=== PATIENT | female | born 1955 | race Caucasian/White ===

== ENCOUNTER 2018-04-22 05:53 | Day surgery (SDC) | payer MEDICARE ==
[~2018-04-22] VITALS: Ht 1788.2 cm; Wt 72.6 kg
--- NOTE | ~2018-04-22 | OP ---
PATIENT NAME: TAMARA GOMEZ MEDICAL RECORD: [id number] :57 LOCATION:DANEUDY ADMISSION DATE: SURGEON: KAYLYNN BRIAN MD DATE OF OPERATION: 04/22/2018 REFERRED BY: Tresa Maya MD PREOPERATIVE DIAGNOSIS: Chronic kidney disease, IV. POSTOPERATIVE DIAGNOSIS: Chronic kidney disease, IV. OPERATION PERFORMED: Creation of a right brachial basilic AV fistula as the first of 2 planned operations to create a translocated basilic vein fistula. SURGEON: Kaylynn Brian MD ANESTHESIA: General per GROUND PRODUCTS DIRECTOR. PREOPERATIVE NOTE: This is a nice 62-year-old white female patient from [place], [place] has chronic kidney disease stage IV and was referred to me for dialysis access creation. She has small veins on her vein mapping preop and we have planned to do an upper arm right-sided AV fistula, probably brachiobasilic. Under anesthesia and with a regional nerve block, the patient was placed in supine position, prepped and draped in sterile manner. I examined her first with a Duplex Ultrasound. I used a [place] drain as a proximal venous tourniquet and applied nitroglycerin paste. I saw on ultrasound that the cephalic vein in the arm is I thought too small to use for a fistula today. The basilic vein is quite the largest vein and I elected to go ahead with what will be a 2-stage operation. I made a transverse incision and exposed the brachial artery and the basilic vein. These vessels were mobilized. The artery was controlled with Silastic loops. The vein was distally ligated with 3-0 Vicryl and divided. The vein was treated with topical papaverine and flushed with heparinized saline and dilated hydrostatically. It was shortened and beveled. The artery was treated with topical papaverine. It was opened at the site of proposed anastomosis and flushed proximally and distally with dilute heparinized saline. An end of vein to side of artery 7-0 running anastomosis was performed and when completed, it was watertight and hemostatic. The patient had immediate thrill and bruit over the anastomosis. There was good pulsatile continuous Doppler flow in the basilic vein and good high resistance pulsatile flow in the brachial artery distal to the anastomosis and there was continuous pulsatile flow in the brachial artery proximal to the anastomosis all as planned. The wound was closed with interrupted inverted 3-0 Vicryl and running intracuticular 4-0 Monocryl and Dermabond glue. It was dressed with Maxorb Ag, Tegaderm, and Cavilon skin prep. The patient was awakened and taken to the recovery room. There was no blood loss during the procedure. All instruments and needles, sponges, etc. were accounted for at the termination of the operation. No drain was used and no specimen was submitted for histopathology. PLAN: The patient will be allowed to go home today and follow up with me in my office in approximately 2 weeks. I plan to bring her back to the operating room OPERATIVE REPORT [id number] TAMARA GOMEZ in approximately 1 month to perform the second stage of these 2 operations. She is given a prescription for tramadol 50 mg, 20 of them, she can take 1 or 2 p.o. q.4 hours p.r.n. pain. TRANSINT:[id number] Voice Confirmation ID: [id number] DOCUMENT ID: [id number] KAYLYNN BRIAN MD at 1054 CC: TRESA MAYA MD [id number] DICTATION DATE: 04/22/18 1249 BLACK TOPPER: 04/22/18 1310 [facility] 04/22/18 [facility] [address] [place] [address]
[2018-04-22 06:49] LABS: BASOPHILS 0.2 % (0-2); EOSINOPHILS 2.7 % (0-7); HEMATOCRIT 30.5 % (36.0-48.0); HEMOGLOBIN 9.7 g/dL (12-16); IMMATURE GRANULOCYTES 0.2 % (0-5); LYMPHOCYTES 27.1 % (15-50); MCH 29.4 pg (26.0-34.0); MCHC 31.8 g/dL (31.0-37.0); MCV 92.4 fL (80.0-100.0); MEAN PLATELET VOLUME 9.3 fL (7.4-10.4); MONOCYTES 5.7 % (2-11); NEUTROPHILS 64.1 % (40-80); PLATELET COUNT 264 10x3/uL (130-400); RDW 13.8 % (11.5-14.5); WBC 8.7 10x3/uL (4.8-10.8)
[2018-04-22 06:55] LABS: ANION GAP 11.4 mmol/L (8-16); CALCIUM 8.9 mg/dL (8.5-10.1); CARBON DIOXIDE 28.2 mmol/L (21.0-32.0); CREATININE - SERUM 3.8 mg/dL (0.6-1.3); POTASSIUM - SERUM 3.6 mmol/L (3.5-5.1)
[2018-04-22 07:24] LABS: INR 0.92 (0.85-1.17)
[2018-04-22] MEDS ORDERED: PAXIL40 MG PO (09:43)
[2018-04-22] MEDS ORDERED: KEPPRA500 MG PO (09:44)
[2018-04-22] MEDS ORDERED: EMBEDA ER 50-21 EACH PO (09:44)
[2018-04-22] MEDS ORDERED: PLAVIX75 MG PO (09:45)
[2018-04-22] MEDS ORDERED: FUROSEMIDE40 MG PO (09:45)
[2018-04-22] MEDS ORDERED: ATIVAN0.5 MG PO (09:45)
[2018-04-22] MEDS ORDERED: PRAVACHOL40 MG PO (09:46)
[2018-04-22] MEDS ORDERED: CARAFATE1 G PO (09:46)
[2018-04-22] MEDS ORDERED: ZYLOPRIM100 MG PO (09:47)
[2018-04-22] MEDS ORDERED: OMEPRAZOLE20 M1 PO (09:47)
[2018-04-22] MEDS ORDERED: ISOSORBIDE MON120 M1 PO (09:47)
[2018-04-22] MEDS ORDERED: DESERYL100 MG PO (09:48)
[2018-04-22] MEDS ORDERED: LOPRESSOR25 MG PO (09:48)
[2018-04-22] MEDS ORDERED: NORVASC5 MG PO (09:48)
[2018-04-22] MEDS ORDERED: ZANTAC150 MG PO (09:49)
[2018-04-22 09:58] VITALS: BP 127/65; Ht 1788.2 cm; Wt 72.6 kg
[2018-04-22] MEDS ORDERED: ULTRAM50 MG PO (12:35)
== END 2018-04-22 14:55 | disposition home or self-care (01) ==
LOC: D.OPS 05:53
PROVIDERS: Surgery
DX: N18.4 Chronic kidney disease, stage 4 (severe) (principal); Z01.812 Encounter for preprocedural laboratory examination

== ENCOUNTER 2018-05-27 07:01 | Day surgery (SDC) | payer MEDICARE ==
[~2018-05-27] VITALS: Ht 162.6 cm; Wt 72.3 kg
--- NOTE | ~2018-05-27 | OP ---
PATIENT NAME: TAMARA GOMEZ MEDICAL RECORD: [id number] :57 LOCATION:D.OPS ADMISSION DATE: SURGEON: KAYLYNN BRIAN MD DATE OF OPERATION: 05/27/2018 SURGEON: Kaylynn Brian MD ANESTHESIA: Regional nerve block, which failed and subsequent general anesthetic per CORK SLABS SAWYER with an LMA. REFERRING PHYSICIAN: Tresa Maya MD PREOPERATIVE DIAGNOSIS: CKD IV. POSTOPERATIVE DIAGNOSIS: CKD IV. PREOPERATIVE NOTE: This 62-year-old white female patient from [place], [place], has severe chronic renal disease and it is anticipated she will require dialysis within the next few months to a year. She had a right brachiobasilic Doreen type AV fistula created about 5 weeks ago within the intention of returning her to the operating room in 3-4 weeks for conversion to a translocated basilic venous outflow type fistula. She is brought back to the OR for that today. After the patient was given a regional block and sedation, she was placed in supine position, prepped and draped in a sterile manner. I examined her with ultrasound and traced the course of the basilic vein and noted it to be 10-12 mm in diameter throughout its course in the upper arm, which I believe will be very satisfactory for dialysis access. We found that the regional block did not give adequate anesthetic, and she was put to sleep with an LMA. A long incision on the medial aspect of the arm was made and the basilic vein mobilized from the arterial anastomosis to the junction with the brachial veins to form the axillary vein. The vein was mobilized fully and then occluded near the arterial anastomosis and the vein divided. The vein was flushed with heparinized saline and treated with topical papaverine and clamped. Branches and tributaries of the vein were ligated with 3-0 Vicryl and divided and a few Hemoclips were used as well as electrocautery for hemostasis. During the dissection, I noted persistent oozing and bleeding and recall that this patient has been on Coumadin. She has supposedly has been off Coumadin for 5 days preop, but obviously there is still some residual effect. I placed the vein in the subcutaneous tunnel just anterior and lateral to the original location. There was not enough length or elasticity in the vein to permit a more anterior tunnel, which I would have preferred. Care was taken not to twist it and it was flushed again with heparinized saline and an end-to-end anastomosis done to the stump of the vein, which had not been removed from the artery. This anastomosis was carried out with 2 running 7-0 Prolenes sutures, taking care not to pursestring or narrow the vein there at the anastomosis. When that was complete and the occluding clamps were released, excellent flow with a strong palpable thrill and strong pulsatile continuous Doppler flow developed immediately. The suture line was hemostatic. The wound continued to ooze and was treated with more electrocautery and dry gauze compression. Some Fibrillar hemostatic oxidized cellulose was used in the upper end of the OPERATIVE REPORT [id number] TAMARA GOMEZ incision to help with hemostasis there. The wound was closed with interrupted inverted 3-0 Vicryl and the skin was closed with running intracuticular 4-0 Monocryl. The wound was sealed and further dressed with glue and Maxorb AG with Tegaderm, and Cavilon skin prep as well. The patient was awakened and taken to the recovery room in stable condition. PLAN: I plan for the patient to go home today and have her back in my office on Wednesday of next week to change the dressing and check her wound. I will ask her not to resume Plavix until that time. Blood loss was about 50 cc and was unreplaced. No drain was used. All sponges, instruments and needles were accounted for and no surgical specimen was submitted for histopathology. TRANSINT:[id number] Voice Confirmation ID: [id number] DOCUMENT ID: [id number] KAYLYNN BRIAN MD at 1709 CC: TRESA MAYA MD [id number] DICTATION DATE: 05/27/18 1232 PACE ANALYST: 05/27/18 1244 [facility] 05/27/18 [facility] [address] [place] [id number]
[~2018-05-27 07:01] MED LIST: ATIVAN0.5 MG PO; CARAFATE1 G PO; DESERYL100 MG PO; EMBEDA ER 50-21 EACH PO; FUROSEMIDE40 MG PO; ISOSORBIDE MON120 M1 PO; KEPPRA500 MG PO; LOPRESSOR25 MG PO; NORVASC5 MG PO; OMEPRAZOLE20 M1 PO; PAXIL40 MG PO; PLAVIX75 MG PO; PRAVACHOL40 MG PO; ULTRAM50 MG PO; ZANTAC150 MG PO; ZYLOPRIM100 MG PO
[2018-05-27 07:45] LABS: BASOPHILS 0.3 % (0-2); EOSINOPHILS 1.9 % (0-7); HEMATOCRIT 31.3 % (36.0-48.0); HEMOGLOBIN 10.1 g/dL (12-16); IMMATURE GRANULOCYTES 0.2 % (0-5); LYMPHOCYTES 22.8 % (15-50); MCH 29.5 pg (26.0-34.0); MCHC 32.3 g/dL (31.0-37.0); MCV 91.5 fL (80.0-100.0); MEAN PLATELET VOLUME 9.3 fL (7.4-10.4); MONOCYTES 4.8 % (2-11); PLATELET COUNT 246 10x3/uL (130-400); RBC 3.42 10x6/uL (4.00-5.40); RDW 13.4 % (11.5-14.5); WBC 9.8 10x3/uL (4.8-10.8)
[2018-05-27 07:59] LABS: APTT 24.4 SECONDS (22.8-39.4); INR 1.06 (0.85-1.17); PROTIME 13.4 SECONDS (11.6-15.0)
[2018-05-27 08:07] LABS: ANION GAP 17.7 mmol/L (8-16); CREATININE - SERUM 4.3 mg/dL (0.6-1.3); POTASSIUM - SERUM 3.7 mmol/L (3.5-5.1)
[2018-05-27 08:32] LABS: ALBUMIN 3.7 g/dL (3.4-5.0); BILIRUBIN - TOTAL 0.18 mg/dL (0.2-1.3); PROTEIN - SERUM 7.1 g/dL (6.4-8.2)
[2018-05-27 08:34] VITALS: BP 145/60; Ht 162.6 cm; Wt 72.3 kg
[2018-05-27] MEDS ORDERED: HYDROCODON-ACE1 EAC7 PO (12:17)
== END 2018-05-27 14:51 | disposition home or self-care (01) ==
LOC: D.OPS 07:01
PROVIDERS: Internal Medicine Nephrology
DX: N18.4 Chronic kidney disease, stage 4 (severe) (principal); Z01.812 Encounter for preprocedural laboratory examination

== ENCOUNTER 2018-06-12 15:48 | Inpatient (IN) | payer MEDICARE ==
[~2018-06-12] VITALS: Ht 162.6 cm; Wt 71.8 kg
--- NOTE | ~2018-06-12 | MORECARE ---
CASE MANAGEMENT DISCHARGE SUMMARY PATIENT: TAMARA GOMEZ UNIT: [id number] ADM DATE: 06/12/18 AGE: 63 : 57 SEX: F ROOM/BED: D.9850 AUTHOR: MAHIN,DOC PHYSICIAN: REFERRING PHYSICIAN: HARPAL CRAFT MD DATE OF SERVICE: 06/21/18 Discharge Plan Patient Name: TAMARA GOMEZ Facility: [facility]:[place] : 1955 Planned Disposition: Home with Home Health Anticipated Discharge Date: 06/20/18 Discharge Date: 06/20/2018 Expected LOS: 8 Initial Reviewer: [email or web address] Initial Review Date: 06/12/2018 Generated: 06/21/18 9:09 am Comments DCP- Discharge Planning Updated by [email or web address]: Edu Steinberg on 06/20/18 1:[address] Patient Name: TAMARA GOMEZ Encounter No: [id number] : 1955 Primary Insurance: MEDICARE A & B Anticipated DC Date: 06-20-2018 Planned Disposition: Home with Home Health External Planned Provider: [facility] DCP follow-up note: CM RECEIVED CALL FROM UZIEL ISSA WHO INFORMED CM THAT THE PT HAS NOTIFIED NURSE THAT SHE IS UNHAPPY THE DOCTOR HAS STOPPED PAIN MEDICATIONS AND MAY LEAVE AMA; LUIS MANUEL IS CONTACTING DR. DE LA CRUZ TO DISCUSS SITUATION WITH HIM. 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 LUIS MANUEL PROVIDED HOME HEALTH ORDER. CM MET WITH PT IN ROOM, DISCUSSED DISCHARGE PLANNING AND NEEDS, AVAILABILITY OF REHAB SERVICES, MEDICAL EQUIPMENT AND HOME HEALTH PT DENIES NEEDS OTHER THAN HOME HEALTH FOR MEDICATION MANAGEMENT. PT REPORTS UNHAPPINESS WITH DOCTOR STOPPING HER PAIN MEDICATIONS AND STATES SHE CAN DO BETTER WITH PAIN MANAGEMENT AT HOME ARRANGED BY HER REGULAR DOCTORS. PT REPORTS HER SISTER IS ON THE WAY TO PICK HER UP FOR DISCHARGE HOME NOW. IMPORTANT MESSAGE FROM MEDICARE PROVIDED AND EXPLAINED. CM CALLED [facility], , SPOKE TO ELOISE WHO TOOK REFERRAL, PT ON SCHEDULE FOR TOMORROW FOR HOME HEALTH ADMISSION. CM FAXED REFERRAL TO [facility] AT [phone]. HAZARDOUS SUBSTANCES SCIENTIST NURSE NOTIFIED. Edu Steinberg, CASE MANAGEMENT DCP- Discharge Planning Updated by [email or web address]: Edu Steinberg on 06/15/18 4:[address] Patient Name: TAMARA GOMEZ Admission Status: ER Accout number: [id number] Admission Date: 06-12-2018 : 1955 Admission Diagnosis:INFCT FOL A PROC, SUPERFIC INCISIONAL SURGICAL SITE, IN Attending: Harpal Craft Current LOS: 3 Anticipated DC Date: 06-17-2018 Planned Disposition: Home with Home Health Primary Insurance: MEDICARE A & B PLANNED EXTERNAL PROVIDER: [facility] Discharge Planning Comments: * Is the patient Alert and Oriented? Yes 0 * How many steps to enter\exit or inside your home? 5 0 * PCP DR. CRISTOFER EVANS, [place] * Pharmacy [facility] IN [place] * Preadmission Environment Home with Family 0 * ADLs Independent 0 * Equipment Rolling Walker Walker 0 * Other Equipment NO MEDICAL EQUIPMENT PROVIDER [place]FR[place] 0 * List name and contact numbers for known caregivers / representatives who currently or will assist patient after discharge: ROBERT CUMMINS, SISTER, 0 * Verbal permission to speak to the caregivers and representatives has been obtained from the patient. Yes 0 * Community resources currently utilized None 0 * Please name any agencies selected above. NONE 0 * Additional services required to return to the preadmission environment? No 0 * Can the patient safely return to the preadmission environment? Yes 0 * Has this patient been hospitalized within the prior 30 days at any hospital? No 0 CM MET WITH PT AND SISTER IN ROOM TO DISCUSS DISCHARGE PLANNING AND NEEDS. TAMARA GOMEZ provided verbal consent to discuss current and ongoing needs with/in the presence of: SISTERROBERT. PT REPORTS LIVING AT HOME INDEPENDENTLY WITH HER ADULT SISTER AND SISTER'S FAMILY. PT HAS WALKER AND 4 WHEELED WALKER AT HOME WITH NO MEDICAL EQUIPMENT PROVIDER PREFERNECE. PT HAS NO OUTSIDE SERVICES ASSISTING IN THE HOME. CM DISCUSSED AVAILABILITY OF HOME HEALTH, REHAB SERVICES AND MEDICAL EQUIPMENT. PT WOULD LIKE HOME HEALTH FOR MEDICATION MANAGEMENT AND TEACHING, PT'S SISTER REPORTS PT IS ON SO MANY MEDICATIONS, THEY ARE HAVING TROUBLE KEEPING UP WITH THEM; CHOICE FOR [facility] SIGNED. PT REPORTS HER SISTER WILL PICK HER UP FOR DISCHARGE HOME. IMPORTANT MESSAGE FROM MEDICARE PROVIDED AND EXPLAINED. PT AND FAMILY ASKED FOR UPDATE REGARDING THE LADY THAT IS SUPPOSED TO BE PUTTING IV IN, SHE LEFT ABOUT 4 HOURS AGO TO GET AN ULTRASOUND MACHINE AND NEVER RETURNED. PT ALSO THINKS SHE MAY HAVE FILED MEDICAID APPLICATION BUT IS NOT SURE AND REPORTS HAVING MEDICARE ONLY, ASKING FOR CM ASSISTANCE TO CHECK WITH MEDICAID. CM CALLED NICO IN [employer], [phone], LEFT DETAILED MESSAGE ASKING TO CHECK TO SEE IF PT HAS FILED FOR MEDICAID AND IF NOT, TO ASSIST WITH MEDICAID APPLICATION. CM NOTIFIED BEDSIDE NURSE OF PT AND FAMILY'S CONCERN OF 4 HOUR WAIT WITH NOT UPDATE ON IV ACCESS NURSE. PT REQUESTED HOME HEALTH FOR MEDICATION TEACHING WITH MARY, PRIMARY CARE DOCTOR [facility] IN [place]. CM TO ARRANGE HOME HEALTH WITH PHYSICIAN AGREEMENT AND HOME HEALTH ORDERS. CM TO FOLLOW AND ASSIST IF NEEDED. Contact Center Engineer: Edu Steinberg DCPIA - Discharge Planning Initial Assessment Updated by MATT: Edu Steinberg on 06/15/18 4:57 pm * Is the patient Alert and Oriented? Yes * How many steps to enter\exit or inside your home? * PCP DR. CRISTOFER EVANS, [place] * Pharmacy [facility] IN [place] * Preadmission Environment Home with Family * ADLs Independent * Equipment Rolling Walker Walker * Other Equipment NO MEDICAL EQUIPMENT PROVIDER PREFRENCE * List name and contact numbers for known caregivers / representatives who currently or will assist patient after discharge: ROBERT CUMMINS, , * Verbal permission to speak to the caregivers and representatives has been obtained from the patient. Yes * Community resources currently utilized None * Please name any agencies selected above. NONE * Additional services required to return to the preadmission environment? No * Can the patient safely return to the preadmission environment? Yes * Has this patient been hospitalized within the prior 30 days at any hospital? No Coverage Notice Reviewer: [email or web address] Gus Steinberg Notice Issued Date-Time: 06/15/2018 16:50 Notice Type: Patient Choice Letter Notice Delivered To: Family Member Relationship to Patient: Sister Rn Documentation Name: ROBERT CUMMINS Delivery Method: HAND - Hand Delivered Linda Days: Prior Verbal Notification: Recipient Understood Notice: Yes Recipient Signature: Yes Med Rec Note Co-signed by Attending: Coverage Notice Comment: [facility] Reviewer: [email or web address] Gus Steinberg Notice Issued Date-Time: 06/15/2018 16:50 Notice Type: IM Discharge Notice Notice Delivered To: Family Member Relationship to Patient: Sister Rn Documentation Name: ROBERT CUMMINS Delivery Method: HAND - Hand Delivered Linda Days: Prior Verbal Notification: Recipient Understood Notice: Yes Recipient Signature: Yes Med Rec Note Co-signed by Attending: Coverage Notice Comment: Reviewer: [id number] - Edu Steinberg Notice Issued Date-Time: 06/20/2018 13:50 Notice Type: IM Discharge Notice Notice Delivered To: Patient Relationship to Patient: Rn Documentation Name: Delivery Method: HAND - Hand Delivered Linda Days: Prior Verbal Notification: Recipient Understood Notice: Yes Recipient Signature: Yes Med Rec Note Co-signed by Attending: Coverage Notice Comment: Last DP export: 06/20/18 1:47 Patient Name: TAMARA GOMEZ Page [id number] at 0809 All edits/amendments must be made on the electronic document DICTATION DATE: 06/21/18 08 CORPORATE HEALTH CONSULTANT: ROBERT 06/21/18 08 RPT#: [id number] DC DATE:06/20/18 STATUS: DIS IN [facility] [address] [place] [address] END OF REPORT
--- NOTE | ~2018-06-12 | OP ---
PATIENT NAME: TAMARA GOMEZ MEDICAL RECORD: [id number] :57 LOCATION:D.M2 D.2138 ADMISSION DATE:06/12/18 SURGEON: KAYLYNN BRIAN MD DATE OF OPERATION: 06/16/2018 REFERRING PHYSICIAN: Tresa Maya MD OPERATION PERFORMED: Insertion of a right internal jugular central venous line with ultrasound and fluoroscopic guidance. SURGEON: Kaylynn Brian MD PREOPERATIVE DIAGNOSES: Chronic kidney disease IV with a wound infection, following creation of a right brachial translocated basilic arteriovenous fistula and no venous access for antibiotic therapy. POSTOPERATIVE DIAGNOSIS: Chronic kidney disease IV with a wound infection, following creation of a right brachial translocated basilic arteriovenous fistula and no venous access for antibiotic therapy. PREOPERATIVE NOTE: This 63-year-old white female patient with chronic renal insufficiency is about 2 weeks status post second stage creation of a right brachial artery to translocated basilic vein arteriovenous fistula. The fistula, I believe, is working well with good pulsation and thrill and bruit; however, she developed a somewhat unusual wound infection, which presented about 2 weeks postop and cultures have grown a single Proteus species. She has received intravenous antibiotic therapy, but has lost all IV access at this point and Dr. Maya does not feel it is appropriate to convert to oral antibiotics just yet. She is brought to the OR to put in a central line. DESCRIPTION OF THE PROCEDURE: Under sedation and monitoring per WOOD STRIP BLOCK FLOOR INSTALLER, the patient was placed in the supine position. The neck first examined with ultrasound and noted a normal diameter fully compressible and otherwise sonographically visibly normal right internal jugular vein on duplex ultrasonography. Her neck was then prepped and draped in a sterile manner. I again used the ultrasound to locate the right internal jugular vein, infiltrated local into the skin and subcutaneous tissues over at the base of the neck and make a small stab incision. Under continuous ultrasound guidance, I advanced a needle and guidewire into the internal jugular vein and under fluoroscopy, passed the guidewire into the right atrium and inferior vena cava. I passed dilators over the wire and lastly placed 16 cm long Arrow triple-lumen central venous line. All 3 lumens were aspirated and I then flushed with saline and then heparin locked. The IV was sutured to the skin at the entry site with 2-0 Prolene and the site was dressed with a chlorhexidine containing Biopatch and a standard CVL dressing. The patient was then returned to her room in stable condition. The catheter is ready to be used. TRANSINT:[id number] Voice Confirmation ID: [id number] DOCUMENT ID: [id number] OPERATIVE REPORT [id number] TAMARA GOMEZ JAMES MD CC: TERSA MAYA MD [id number] DICTATION DATE: 06/30/18 1028 TRANSPLANT REGISTERED NURSE: 06/30/18 1124 DIS [place] 06/20/18 [place] [id number] [place] [id number]
--- NOTE | ~2018-06-12 | MORECARE ---
CASE MANAGEMENT DISCHARGE SUMMARY PATIENT: TAMARA GOMEZ UNIT: [id number] ADM DATE: 06/12/18 AGE: 63 : 57 SEX: F ROOM/BED: D.2650 AUTHOR: NICOL STOCKTON PHYSICIAN: REFERRING PHYSICIAN: HARPAL CRAFT MD DATE OF SERVICE: 06/20/18 Discharge Plan Patient Name: TAMARA GOMEZ Facility: [facility]:[place] : 1955 Planned Disposition: Home with Home Health Anticipated Discharge Date: 06/20/18 Discharge Date: Expected LOS: 8 Initial Reviewer: [id number] Initial Review Date: 06/12/2018 Generated: 06/20/18 3:27 pm Comments DCP- Discharge Planning Updated by [id number]: Edu Steinberg on 06/15/18 4:[address] Patient Name: TAMARA GOMEZ Admission Status: ER Accout number: [id number] Admission Date: 06-12-2018 : 1955 Admission Diagnosis:INFCT FOL A PROC, SUPERFIC INCISIONAL SURGICAL SITE, IN Attending: Harpal Craft Current LOS: 3 Anticipated DC Date: 06-17-2018 Planned Disposition: Home with Home Health Primary Insurance: MEDICARE A & B PLANNED EXTERNAL PROVIDER: [facility] Discharge Planning Comments: * Is the patient Alert and Oriented? Yes 0 * How many steps to enter\exit or inside your home? 5 0 * PCP DR. CRISTOFER EVANS, [place] 0 * Pharmacy [facility] IN [place] 0 * Preadmission Environment Home with Family 0 * ADLs Independent 0 * Equipment Rolling Walker Walker 0 * Other Equipment NO MEDICAL EQUIPMENT PROVIDER PREFRENCE 0 * List name and contact numbers for known caregivers / representatives who currently or will assist patient after discharge: ROBERT CUMMINS, , 0 * Verbal permission to speak to the caregivers and representatives has been obtained from the patient. Yes 0 * Community resources currently utilized None 0 * Please name any agencies selected above. NONE 0 * Additional services required to return to the preadmission environment? No 0 * Can the patient safely return to the preadmission environment? Yes 0 * Has this patient been hospitalized within the prior 30 days at any hospital? No 0 CM MET WITH PT AND SISTER IN ROOM TO DISCUSS DISCHARGE PLANNING AND NEEDS. TAMARA GOMEZ provided verbal consent to discuss current and ongoing needs with/in the presence of: SISTER, ROBERT. PT REPORTS LIVING AT HOME INDEPENDENTLY WITH HER ADULT SISTER AND SISTER'S FAMILY. PT HAS WALKER AND 4 WHEELED WALKER AT HOME WITH NO MEDICAL EQUIPMENT PROVIDER PREFERNECE. PT HAS NO OUTSIDE SERVICES ASSISTING IN THE HOME. CM DISCUSSED AVAILABILITY OF HOME HEALTH, REHAB SERVICES AND MEDICAL EQUIPMENT. 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 PT REPORTS HER SISTER WILL PICK HER UP FOR DISCHARGE HOME. IMPORTANT MESSAGE FROM MEDICARE PROVIDED AND EXPLAINED. PT AND FAMILY ASKED FOR UPDATE REGARDING THE LADY THAT IS SUPPOSED TO BE PUTTING IV IN, SHE LEFT ABOUT 4 HOURS AGO TO GET AN ULTRASOUND MACHINE AND NEVER RETURNED. PT ALSO THINKS SHE MAY HAVE FILED MEDICAID APPLICATION BUT IS NOT SURE AND REPORTS HAVING MEDICARE ONLY, ASKING FOR CM ASSISTANCE TO CHECK WITH MEDICAID. CM CALLED NICO IN [place], [phone], LEFT DETAILED MESSAGE ASKING TO CHECK TO SEE IF PT HAS FILED FOR MEDICAID AND IF NOT, TO ASSIST WITH MEDICAID APPLICATION. CM NOTIFIED BEDSIDE NURSE OF PT AND FAMILY'S CONCERN OF 4 HOUR WAIT WITH NOT UPDATE ON IV ACCESS NURSE. PT REQUESTED HOME HEALTH FOR MEDICATION TEACHING WITH [facility], PRIMARY CARE DOCTOR CRISTOF[facility] EVANS IN [place]. CM TO ARRANGE HOME HEALTH WITH PHYSICIAN AGREEMENT AND HOME HEALTH ORDERS. CM TO FOLLOW AND ASSIST IF NEEDED. Retail Cashier Associate: Edu Steinberg DCPIA - Discharge Planning Initial Assessment Updated by [id number]: Edu Steinberg on 06/15/18 4:57 pm * Is the patient Alert and Oriented? Yes * How many steps to enter\exit or inside your home? * PCP DR. CRISTOFER EVANS, [place] * Pharmacy [facility] IN [place] * Preadmission Environment Home with Family * ADLs Independent * Equipment Rolling Walker Walker * Other Equipment NO MEDICAL EQUIPMENT PROVIDER PREFRENCE * List name and contact numbers for known caregivers / representatives who currently or will assist patient after discharge: SISTER PACHECO, * Verbal permission to speak to the caregivers and representatives has been obtained from the patient. Yes * Community resources currently utilized None * Please name any agencies selected above. NONE * Additional services required to return to the preadmission environment? No * Can the patient safely return to the preadmission environment? Yes * Has this patient been hospitalized within the prior 30 days at any hospital? No Coverage Notice Reviewer: [id number] Steinberg Notice Issued Date-Time: 06/15/2018 16:50 Notice Type: Patient Choice Letter Notice Delivered To: Family Member Relationship to Patient: Computer Systems Information Director Name: ROBERT CUMMINS Delivery Method: HAND - Hand Delivered Linda Days: Prior Verbal Notification: Recipient Understood Notice: Yes Recipient Signature: Yes Med Rec Note Co-signed by Attending: Coverage Notice Comment: [facility] Reviewer: [id number] Gus Steinberg Notice Issued Date-Time: 06/15/2018 16:50 Notice Type: IM Discharge Notice Notice Delivered To: Family Member Relationship to Patient: Sister Computer Systems Information Director Name: ROBERT CUMMINS Delivery Method: HAND - Hand Delivered Linda Days: Prior Verbal Notification: Recipient Understood Notice: Yes Recipient Signature: Yes Med Rec Note Co-signed by Attending: Coverage Notice Comment: Last DP export: 06/15/18 4:06 Patient Name: TAMARA GOMEZ Page [id number] at 1427 All edits/amendments must be made on the electronic document DICTATION DATE: 06/20/181426 BRANNER MACHINE TENDER: ROBERT 06/20/181426 RPT#: [id number] DC DATE: STATUS: ADM IN [facility] [address] [place] [address] END OF REPORT
--- NOTE | ~2018-06-12 | MORECARE ---
CASE MANAGEMENT DISCHARGE SUMMARY PATIENT: TAMARA GOMEZ UNIT: [id number] ADM DATE: 06/12/18 AGE: 63 : 57 SEX: F ROOM/BED: D.2049 AUTHOR: NICOL STOCKTON PHYSICIAN: REFERRING PHYSICIAN: HARPAL CRAFT MD DATE OF SERVICE: 06/20/18 Discharge Plan Patient Name: TAMARA GOMEZ Facility: [facility]:[place] : 1955 Planned Disposition: Home with Home Health Anticipated Discharge Date: 06/20/18 Discharge Date: Expected LOS: 8 Initial Reviewer: [id number] Initial Review Date: 06/12/2018 Generated: 06/20/18 3:47 pm Comments DCP- Discharge Planning Updated by [email or web address]: Edu Steinberg on 06/20/18 1:[address] Patient Name: TAMARA GOMEZ Encounter No: [id number] : 1955 Primary Insurance: MEDICARE A & B Anticipated DC Date: 06-20-2018 Planned Disposition: Home with Home Health External Planned Provider: [facility] DCP follow-up note: CM RECEIVED CALL FROM UZIEL ISSA WHO INFORMED CM THAT THE PT HAS NOTIFIED NURSE THAT SHE IS UNHAPPY THE DOCTOR HAS STOPPED PAIN MEDICATIONS AND MAY LEAVE AMA; LUIS MANUEL IS CONTACTING DR. DE LA CRUZ TO DISCUSS SITUATION WITH HIM. 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 LUIS MANUEL PROVIDED HOME HEALTH ORDER. CM MET WITH PT IN ROOM, DISCUSSED DISCHARGE PLANNING AND NEEDS, AVAILABILITY OF REHAB SERVICES, MEDICAL EQUIPMENT AND HOME HEALTH PT DENIES NEEDS OTHER THAN HOME HEALTH FOR MEDICATION MANAGEMENT. PT REPORTS UNHAPPINESS WITH DOCTOR STOPPING HER PAIN MEDICATIONS AND STATES SHE CAN DO BETTER WITH PAIN MANAGEMENT AT HOME ARRANGED BY HER REGULAR DOCTORS. PT REPORTS HER SISTER IS ON THE WAY TO PICK HER UP FOR DISCHARGE HOME NOW. IMPORTANT MESSAGE FROM MEDICARE PROVIDED AND EXPLAINED. CM CALLED [facility], , SPOKE TO ELOISE WHO TOOK REFERRAL, PT ON SCHEDULE FOR TOMORROW FOR HOME HEALTH ADMISSION. CM FAXED REFERRAL TO [facility] AT [phone]. SYNCHRONOUS MOTOR ASSEMBLER NURSE NOTIFIED. Edu Steinberg, CASE MANAGEMENT DCP- Discharge Planning Updated by [id number]: Edu Idris on 06/15/18 4:[address] Patient Name: TAMARA GOMEZ Admission Status: ER Accout number: [id number] Admission Date: 06-12-2018 : 1955 Admission Diagnosis:INFCT FOL A PROC, SUPERFIC INCISIONAL SURGICAL SITE, IN Attending: Harpal Craft Current LOS: 3 Anticipated DC Date: 06-17-2018 Planned Disposition: Home with Home Health Primary Insurance: MEDICARE A & B PLANNED EXTERNAL PROVIDER: [facility] Discharge Planning Comments: * Is the patient Alert and Oriented? Yes 0 * How many steps to enter\exit or inside your home? 5 0 * PCP DR. CRISTOFER EVANS, [place] 0 * Pharmacy [facility] IN [place] 0 * Preadmission Environment Home with Family 0 * ADLs Independent 0 * Equipment Rolling Walker Walker 0 * Other Equipment NO MEDICAL EQUIPMENT PROVIDER PREFRENCE 0 * List name and contact numbers for known caregivers / representatives who currently or will assist patient after discharge: ROBERT CUMMINS, SISTER, 0 * Verbal permission to speak to the caregivers and representatives has been obtained from the patient. Yes 0 * Community resources currently utilized None 0 * Please name any agencies selected above. NONE 0 * Additional services required to return to the preadmission environment? No 0 * Can the patient safely return to the preadmission environment? Yes 0 * Has this patient been hospitalized within the prior 30 days at any hospital? No 0 CM MET WITH PT AND SISTER IN ROOM TO DISCUSS DISCHARGE PLANNING AND NEEDS. TAMARA GOMEZ provided verbal consent to discuss current and ongoing needs with/in the presence of: SISTER, ROBERT. PT REPORTS LIVING AT HOME INDEPENDENTLY WITH HER ADULT SISTER AND SISTER'S FAMILY. PT HAS WALKER AND 4 WHEELED WALKER AT HOME WITH NO MEDICAL EQUIPMENT PROVIDER PREFERNECE. PT HAS NO OUTSIDE SERVICES ASSISTING IN THE HOME. CM DISCUSSED AVAILABILITY OF HOME HEALTH, REHAB SERVICES AND MEDICAL EQUIPMENT. 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 PT REPORTS HER SISTER WILL PICK HER UP FOR DISCHARGE HOME. IMPORTANT MESSAGE FROM MEDICARE PROVIDED AND EXPLAINED. PT AND FAMILY ASKED FOR UPDATE REGARDING THE LADY THAT IS SUPPOSED TO BE PUTTING IV IN, SHE LEFT ABOUT 4 HOURS AGO TO GET AN ULTRASOUND MACHINE AND NEVER RETURNED. PT ALSO THINKS SHE MAY HAVE FILED MEDICAID APPLICATION BUT IS NOT SURE AND REPORTS HAVING MEDICARE ONLY, ASKING FOR CM ASSISTANCE TO CHECK WITH MEDICAID. CM CALLED NICO IN [place], [phone], LEFT DETAILED MESSAGE ASKING TO CHECK TO SEE IF PT HAS FILED FOR MEDICAID AND IF NOT, TO ASSIST WITH MEDICAID APPLICATION. CM NOTIFIED BEDSIDE NURSE OF PT AND FAMILY'S CONCERN OF 4 HOUR WAIT WITH NOT UPDATE ON IV ACCESS NURSE. 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 CM TO ARRANGE HOME HEALTH WITH PHYSICIAN AGREEMENT AND HOME HEALTH ORDERS. CM TO FOLLOW AND ASSIST IF NEEDED. Power Distribution Engineer: Edu Steinberg DCPIA - Discharge Planning Initial Assessment Updated by MATT: Edu Steinberg on 06/15/18 4:57 pm * Is the patient Alert and Oriented? Yes * How many steps to enter\exit or inside your home? * PCP DR. CRISTOFER EVANS, [place] * Pharmacy [facility] IN [place] * Preadmission Environment Home with Family * ADLs Independent * Equipment Rolling Walker Walker * Other Equipment NO MEDICAL EQUIPMENT PROVIDER PREFRENCE * List name and contact numbers for known caregivers / representatives who currently or will assist patient after discharge: ROBERT CUMMINS, , * Verbal permission to speak to the caregivers and representatives has been obtained from the patient. Yes * Community resources currently utilized None * Please name any agencies selected above. NONE * Additional services required to return to the preadmission environment? No * Can the patient safely return to the preadmission environment? Yes * Has this patient been hospitalized within the prior 30 days at any hospital? No Coverage Notice Reviewer: [id number] Gus Steinberg Notice Issued Date-Time: 06/15/2018 16:50 Notice Type: Patient Choice Letter Notice Delivered To: Family Member Relationship to Patient: Sister Restaurant Shift Leader Name: ROBERT CUMMINS Delivery Method: HAND - Hand Delivered Linda Days: Prior Verbal Notification: Recipient Understood Notice: Yes Recipient Signature: Yes Med Rec Note Co-signed by Attending: Coverage Notice Comment: [facility] Reviewer: [id number] Gus Steinberg Notice Issued Date-Time: 06/15/2018 16:50 Notice Type: IM Discharge Notice Notice Delivered To: Family Member Relationship to Patient: Sister Restaurant Shift Leader Name: GALE PLACIDO Delivery Method: HAND - Hand Delivered Linda Days: Prior Verbal Notification: Recipient Understood Notice: Yes Recipient Signature: Yes Med Rec Note Co-signed by Attending: Coverage Notice Comment: Reviewer: [id number] - Edu Steinberg Notice Issued Date-Time: 06/20/2018 13:50 Notice Type: IM Discharge Notice Notice Delivered To: Patient Relationship to Patient: Restaurant Shift Leader Name: Delivery Method: HAND - Hand Delivered Linda Days: Prior Verbal Notification: Recipient Understood Notice: Yes Recipient Signature: Yes Med Rec Note Co-signed by Attending: Coverage Notice Comment: Last DP export: 06/20/18 1:27 Patient Name: TAMARA GOMEZ Page [phone] at 1447 All edits/amendments must be made on the electronic document DICTATION DATE: 06/20/181445 PROFESSOR OF SURGERY: ROBERT 06/20/181445 RPT#: [id number] DC DATE: STATUS: ADM IN [facility] [address] [place] [address] END OF REPORT
[~2018-06-12 15:48] MED LIST changes: +HYDROCODON-ACE1 EAC7 PO
[2018-06-12 17:14] LABS: BASOPHILS 0.1 % (0-2); EOSINOPHILS 0.4 % (0-7); HEMOGLOBIN 7.6 g/dL (12-16); IMMATURE GRANULOCYTES 0.1 % (0-5); LYMPHOCYTES 10.9 % (15-50); MCH 28.8 pg (26.0-34.0); MCHC 31.7 g/dL (31.0-37.0); MCV 90.9 fL (80.0-100.0); MEAN PLATELET VOLUME 9.5 fL (7.4-10.4); MONOCYTES 5.1 % (2-11); NEUTROPHILS 83.4 % (40-80); PLATELET COUNT 207 10x3/uL (130-400); RBC 2.64 10x6/uL (4.00-5.40); RDW 13.7 % (11.5-14.5); WBC 13.6 10x3/uL (4.8-10.8)
[2018-06-12 17:33] LABS: BILIRUBIN - TOTAL 0.28 mg/dL (0.2-1.3); CALCIUM 8.2 mg/dL (8.5-10.1); CARBON DIOXIDE 25.4 mmol/L (21.0-32.0); CREATININE - SERUM 4.4 mg/dL (0.6-1.3); POTASSIUM - SERUM 3.4 mmol/L (3.5-5.1); PROTEIN - SERUM 5.9 g/dL (6.4-8.2)
[2018-06-12 19:53] VITALS: BP 118/48; BMI 27.1
[2018-06-12 22:01] VITALS: BP 118/48
[2018-06-13] VITALS (11 sets, daily range): BP systolic 104–126; BP diastolic 47–82; BMI 27.1
[2018-06-13 07:51] LABS: BASOPHILS 0.5 % (0-2); EOSINOPHILS 1.6 % (0-7); IMMATURE GRANULOCYTES 0.6 % (0-5); LYMPHOCYTES 25.8 % (15-50); MCH 29.1 pg (26.0-34.0); MCHC 32.8 g/dL (31.0-37.0); MEAN PLATELET VOLUME 9.3 fL (7.4-10.4); MONOCYTES 6.3 % (2-11); NEUTROPHILS 65.2 % (40-80); RBC 2.03 10x6/uL (4.00-5.40); RDW 13.8 % (11.5-14.5)
[2018-06-13 07:52] LABS: WBC 6.4 10x3/uL (4.8-10.8)
[2018-06-13 07:54] LABS: HEMOGLOBIN 5.9 g/dL (12-16); MCV 88.7 fL (80.0-100.0); PLATELET COUNT 130 10x3/uL (130-400)
[2018-06-13 08:30] LABS: ANION GAP 16.2 mmol/L (8-16); CALCIUM 8.8 mg/dL (8.5-10.1); CREATININE - SERUM 4.3 mg/dL (0.6-1.3); POTASSIUM - SERUM 3.2 mmol/L (3.5-5.1)
[2018-06-14 00:56] VITALS: BP 141/63
[2018-06-14 04:22] VITALS: BP 123/49
[2018-06-14 06:05] LABS: ANION GAP 19.7 mmol/L (8-16); CALCIUM 8.8 mg/dL (8.5-10.1); CREATININE - SERUM 4.6 mg/dL (0.6-1.3)
[2018-06-14 06:09] LABS: POTASSIUM - SERUM 3.7 mmol/L (3.5-5.1)
[2018-06-14 07:23] LABS: BASOPHILS 0.3 % (0-2); EOSINOPHILS 1.7 % (0-7); IMMATURE GRANULOCYTES 0.3 % (0-5); LYMPHOCYTES 21.5 % (15-50); MCH 29.6 pg (26.0-34.0); MCHC 33.6 g/dL (31.0-37.0); MCV 87.9 fL (80.0-100.0); MEAN PLATELET VOLUME 9.8 fL (7.4-10.4); MONOCYTES 4.4 % (2-11); NEUTROPHILS 71.8 % (40-80); RDW 13.9 % (11.5-14.5); WBC 7.5 10x3/uL (4.8-10.8)
[2018-06-14 07:26] LABS: HEMATOCRIT 32.1 % (36.0-48.0); HEMOGLOBIN 10.8 g/dL (12-16); PLATELET COUNT 203 10x3/uL (130-400); RBC 3.65 10x6/uL (4.00-5.40)
[2018-06-14 07:49] VITALS: BP 135/53
[2018-06-14 09:06] LABS: % SATURATION 19 % (15-55); IRON 40 ug/dl (35-150); TOTAL IRON BIND CAPACITY 201 ug/dl (260-445); UNSAT IRON BIND CAPACITY 161 ug/dl (150-375)
[2018-06-14 18:04] VITALS: Ht 162.6 cm; Wt 71.8 kg
[2018-06-14 18:17] VITALS: BP 150/83
[2018-06-14 20:29] VITALS: BP 150/61
[2018-06-15 01:10] VITALS: BP 136/65
[2018-06-15 06:18] VITALS: BP 139/57
[2018-06-15 10:22] LABS: FOLATE (FOLIC ACID) - SERUM >20.0 ng/mL (>3.0)
[2018-06-15 11:00] VITALS: BP 144/62
[2018-06-15 18:37] VITALS: BP 130/59
[2018-06-15 19:00] VITALS: BP 154/68
[2018-06-16 00:55] VITALS: BP 176/77
[2018-06-16 05:59] LABS: BASOPHILS 0.2 % (0-2); EOSINOPHILS 0.2 % (0-7); HEMATOCRIT 36.9 % (36.0-48.0); HEMOGLOBIN 12.2 g/dL (12-16); IMMATURE GRANULOCYTES 0.3 % (0-5); LYMPHOCYTES 21.6 % (15-50); MCH 29.3 pg (26.0-34.0); MCHC 33.1 g/dL (31.0-37.0); MCV 88.7 fL (80.0-100.0); MEAN PLATELET VOLUME 10.2 fL (7.4-10.4); MONOCYTES 5.1 % (2-11); NEUTROPHILS 72.6 % (40-80); RBC 4.16 10x6/uL (4.00-5.40); RDW 13.7 % (11.5-14.5)
[2018-06-16 06:18] LABS: PLATELET COUNT 246 10x3/uL (130-400)
[2018-06-16 06:34] LABS: ALBUMIN 3.3 g/dL (3.4-5.0); ANION GAP 16.3 mmol/L (8-16); BILIRUBIN - TOTAL 0.21 mg/dL (0.2-1.3); CALCIUM 9.1 mg/dL (8.5-10.1); CARBON DIOXIDE 26.5 mmol/L (21.0-32.0); CREATININE - SERUM 3.9 mg/dL (0.6-1.3); PHOSPHOROUS 3.3 mg/dL (2.5-4.9); PROTEIN - SERUM 6.9 g/dL (6.4-8.2); VANCOMYCIN - RANDOM 11.7 ug/mL (10.0-20.0)
[2018-06-16 06:36] LABS: POTASSIUM - SERUM 2.8 mmol/L (3.5-5.1)
[2018-06-16 08:47] VITALS: BP 169/69
[2018-06-16 11:06] VITALS: BP 132/71
[2018-06-16 16:17] VITALS: BP 163/68
[2018-06-16 19:24] LABS: ANION GAP 18.9 mmol/L (8-16); CARBON DIOXIDE 21.8 mmol/L (21.0-32.0); CREATININE - SERUM 3.9 mg/dL (0.6-1.3)
[2018-06-16 19:26] LABS: POTASSIUM - SERUM 2.7 mmol/L (3.5-5.1)
[2018-06-16 21:22] VITALS: BP 181/75
[2018-06-17 02:17] VITALS: BP 183/77
[2018-06-17 05:59] VITALS: BP 187/74
[2018-06-17 06:06] LABS: ANION GAP 15.9 mmol/L (8-16); CARBON DIOXIDE 24.2 mmol/L (21.0-32.0); CREATININE - SERUM 3.4 mg/dL (0.6-1.3); PHOSPHOROUS 2.7 mg/dL (2.5-4.9); POTASSIUM - SERUM 3.1 mmol/L (3.5-5.1)
[2018-06-17 06:49] LABS: BASOPHILS 0.2 % (0-2); EOSINOPHILS 0.1 % (0-7); HEMATOCRIT 35.4 % (36.0-48.0); HEMOGLOBIN 11.9 g/dL (12-16); IMMATURE GRANULOCYTES 0.3 % (0-5); LYMPHOCYTES 16.1 % (15-50); MCH 29.5 pg (26.0-34.0); MCHC 33.6 g/dL (31.0-37.0); MCV 87.8 fL (80.0-100.0); MEAN PLATELET VOLUME 9.5 fL (7.4-10.4); MONOCYTES 5.2 % (2-11); NEUTROPHILS 78.1 % (40-80); PLATELET COUNT 221 10x3/uL (130-400); RBC 4.03 10x6/uL (4.00-5.40); RDW 13.6 % (11.5-14.5); WBC 12.2 10x3/uL (4.8-10.8)
[2018-06-17 08:14] VITALS: BP 174/74
[2018-06-17 12:06] VITALS: BP 144/66
[2018-06-17 16:03] VITALS: BP 172/79
[2018-06-17 21:58] VITALS: BP 163/61
[2018-06-18 01:06] VITALS: BP 165/79
[2018-06-18 04:00] VITALS: BP 168/51
[2018-06-18 06:44] LABS: BASOPHILS 0.1 % (0-2); EOSINOPHILS 0.1 % (0-7); HEMATOCRIT 39.1 % (36.0-48.0); HEMOGLOBIN 13.2 g/dL (12-16); IMMATURE GRANULOCYTES 0.3 % (0-5); LYMPHOCYTES 17.5 % (15-50); MCH 29.7 pg (26.0-34.0); MCHC 33.8 g/dL (31.0-37.0); MCV 88.1 fL (80.0-100.0); MONOCYTES 4.6 % (2-11); NEUTROPHILS 77.4 % (40-80); PLATELET COUNT 262 10x3/uL (130-400); RBC 4.44 10x6/uL (4.00-5.40); RDW 13.8 % (11.5-14.5); WBC 15.1 10x3/uL (4.8-10.8)
[2018-06-18 07:15] LABS: ANION GAP 18.9 mmol/L (8-16); CALCIUM 8.8 mg/dL (8.5-10.1); CARBON DIOXIDE 21.3 mmol/L (21.0-32.0); CREATININE - SERUM 3.7 mg/dL (0.6-1.3); PHOSPHOROUS 3.4 mg/dL (2.5-4.9); POTASSIUM - SERUM 3.2 mmol/L (3.5-5.1)
[2018-06-18 08:00] VITALS: BP 166/73
[2018-06-18 12:52] VITALS: BP 143/72
[2018-06-18 13:35] LABS: CREATINE KINASE 83 UL (21-215)
[2018-06-18 13:39] LABS: TROPONIN-I 1.357 ng/mL (0.000-0.060)
[2018-06-18 14:10] LABS: CKMB 3.2 U/L (0.0-3.6)
[2018-06-18 17:16] VITALS: BP 118/56
[2018-06-18 19:57] LABS: CKMB 2.5 U/L (0.0-3.6); CREATINE KINASE 63 UL (21-215)
[2018-06-18 20:15] VITALS: BP 100/51
[2018-06-18 23:44] LABS: CKMB 2.1 U/L (0.0-3.6); CREATINE KINASE 48 UL (21-215)
[2018-06-19 01:16] VITALS: BP 109/63
[2018-06-19 05:32] LABS: BASOPHILS 0.1 % (0-2); EOSINOPHILS 0.9 % (0-7); HEMATOCRIT 35.1 % (36.0-48.0); HEMOGLOBIN 11.5 g/dL (12-16); IMMATURE GRANULOCYTES 0.3 % (0-5); LYMPHOCYTES 28.6 % (15-50); MCH 29.5 pg (26.0-34.0); MCHC 32.8 g/dL (31.0-37.0); MEAN PLATELET VOLUME 10.1 fL (7.4-10.4); MONOCYTES 6.8 % (2-11); NEUTROPHILS 63.3 % (40-80); RDW 13.9 % (11.5-14.5)
[2018-06-19 05:35] LABS: PLATELET COUNT 177 10x3/uL (130-400); WBC 8.8 10x3/uL (4.8-10.8)
[2018-06-19 05:51] VITALS: BP 103/47
[2018-06-19 06:20] LABS: ANION GAP 16.9 mmol/L (8-16); CALCIUM 8.5 mg/dL (8.5-10.1); CARBON DIOXIDE 22.5 mmol/L (21.0-32.0); CREATININE - SERUM 4.3 mg/dL (0.6-1.3); POTASSIUM - SERUM 3.4 mmol/L (3.5-5.1); VANCOMYCIN - RANDOM 14.1 ug/mL (10.0-20.0)
[2018-06-19 08:20] VITALS: BP 120/57
[2018-06-19 20:42] VITALS: BP 112/52
[2018-06-20 01:36] VITALS: BP 120/60
[2018-06-20 05:07] LABS: BASOPHILS 0.3 % (0-2); EOSINOPHILS 2.1 % (0-7); HEMOGLOBIN 11.1 g/dL (12-16); IMMATURE GRANULOCYTES 0.4 % (0-5); LYMPHOCYTES 25.3 % (15-50); MCH 29.4 pg (26.0-34.0); MCHC 32.6 g/dL (31.0-37.0); MCV 90.2 fL (80.0-100.0); MEAN PLATELET VOLUME 9.8 fL (7.4-10.4); NEUTROPHILS 67.9 % (40-80); PLATELET COUNT 186 10x3/uL (130-400); RBC 3.77 10x6/uL (4.00-5.40); RDW 13.7 % (11.5-14.5); WBC 9.1 10x3/uL (4.8-10.8)
[2018-06-20 05:35] LABS: ANION GAP 14.4 mmol/L (8-16); CALCIUM 8.2 mg/dL (8.5-10.1); CARBON DIOXIDE 24.5 mmol/L (21.0-32.0); CREATININE - SERUM 4.5 mg/dL (0.6-1.3)
[2018-06-20 05:36] LABS: POTASSIUM - SERUM 2.9 mmol/L (3.5-5.1)
[2018-06-20 06:04] VITALS: BP 108/54; BP 94/64
[2018-06-20 09:15] VITALS: BP 135/61
[2018-06-20 11:05] VITALS: BP 183/60
[2018-06-20 11:45] LABS: APPEARANCE SL CLDY (CLEAR); BILIRUBIN NEGATIVE (NEGATIVE); COLOR YELLOW (YELLOW); GLUCOSE NEGATIVE (NEGATIVE); KETONE NEGATIVE (NEGATIVE); NITRITE NEGATIVE (NEGATIVE); PROTEIN 3+ mg/dL (NEGATIVE); SPECIFIC GRAVITY 1.015 (1.005-1.020); UROBILINOGEN NORMAL (NORMAL)
[2018-06-20 11:46] LABS: BACTERIA FEW /hpf (NONE SEEN); MUCUS <1+ /lpf (NONE SEEN); RED CELLS - URINE RARE /hpf (0-5); WHITE CELLS - URINE OCC /hpf (0-5); YEAST <1+ /hpf (NONE SEEN)
[2018-06-20] MEDS ORDERED: LEVAQUIN250 MG PO (13:19)
[2018-06-20 14:42] VITALS: BP 138/60
== END 2018-06-20 17:18 | disposition home health service (06) | DRG 863 ==
LOC: D.ER 15:48 → D.M2 18:31
PROVIDERS: Family Medicine; Internal Medicine; Internal Medicine Nephrology; Surgery
PROC: 05HM33Z Insertion of Infusion Device into Right Internal Jugular Vein, Percutaneous Approach (ICD-10-PCS; 2018-06-16)
PROC: 0JH63XZ Insertion of Tunneled Vascular Access Device into Chest Subcutaneous Tissue and Fascia, Percutaneous Approach (ICD-10-PCS; principal; 2018-06-16 17:00)
DX: T81.41XA Infection following a procedure, superficial incisional surgical site, initial encounter (principal); I13.0 Hypertensive heart and chronic kidney disease with heart failure and stage 1 through stage 4 chronic kidney disease, or unspecified chronic kidney disease; N18.4 Chronic kidney disease, stage 4 (severe); B99.9 Unspecified infectious disease; Y83.8 Other surgical procedures as the cause of abnormal reaction of the patient, or of later complication, without mention of misadventure at the time of the procedure; I50.9 Heart failure, unspecified; E78.5 Hyperlipidemia, unspecified; G40.909 Epilepsy, unspecified, not intractable, without status epilepticus; G20 Parkinson's disease; I25.10 Atherosclerotic heart disease of native coronary artery without angina pectoris; K21.9 Gastro-esophageal reflux disease without esophagitis; J44.9 Chronic obstructive pulmonary disease, unspecified; Z95.5 Presence of coronary angioplasty implant and graft; Z95.0 Presence of cardiac pacemaker; Z95.1 Presence of aortocoronary bypass graft; Z72.0 Tobacco use